=== PATIENT | female | born 1980 | race Caucasian/White ===

== ENCOUNTER → 2017-01-29 | Outpatient (REF) | payer OTHER ==
[2017-02-01 13:29] LABS: PERCENT SATURATION 22.4 % (13.2-37.4)
== END ==
LOC: M LAB REF 12:22
PROVIDERS: ATTEND Nurse Practitioner Family
DX: D50.9 Iron deficiency anemia, unspecified (principal)

== ENCOUNTER → 2018-01-28 | Outpatient (REF) | payer BC ==
[2018-01-28 17:02] LABS: VITAMIN B12 LEVEL 649 PG/ML (247-911)
== END ==
LOC: M LAB REF 16:31
DX: D50.9 Iron deficiency anemia, unspecified (principal); R53.83 Other fatigue
CPT/HCPCS: 82607

== ENCOUNTER → 2023-07-13 | Outpatient (REF) | payer OTHER | LOC: M LAB REF 12:43 | PROVIDERS: ATTEND Nurse Practitioner Family | DX: R82.90 Unspecified abnormal findings in urine (principal) ==

== ENCOUNTER → 2024-11-22 | Outpatient (CLI) | payer OTHER | LOC: M WUC 08:44 | PROVIDERS: ATTEND Nurse Practitioner Family | DX: R21 Rash and other nonspecific skin eruption (principal) ==

== ENCOUNTER → 2024-12-10 | Outpatient (REF) | payer OTHER | LOC: M LAB REF 19:02 | PROVIDERS: ATTEND Registered Nurse | DX: N39.0 Urinary tract infection, site not specified (principal) ==

== ENCOUNTER 2025-03-06 23:32 | Emergency (ER) | payer OTHER, SELFPAY ==
[~2025-03-06] VITALS: Ht 160 cm; Wt 63.0 kg
[2025-03-07] MEDS: ACETAMINOPHEN 325 MG TAB PO ONE (06:56)
[2025-03-07] MEDS: DERMABOND TOPICAL SKIN ADHESIVE TOP ONE (06:56)
[2025-03-07] MEDS: LIDOCAINE 4% CREAM 5GM (LMX4) TOP ONE (06:56)
[2025-03-07] MEDS: BOOSTRIX VACCINE (TETANUS/DIPHTH/ACEL. PERTUSSIS) 0.5ML SYR IM.IMMUN ONE (08:22)
[2025-03-07 08:24] VITALS: BP 124/75; TEMP 97.2; O2SAT 98
== END 2025-03-07 08:26 | disposition home or self-care (01) ==
LOC: M ED 23:32
DX: S01.112A Laceration without foreign body of left eyelid and periocular area, initial encounter (principal); S63.611A Unspecified sprain of left index finger, initial encounter; S33.8XXA Sprain of other parts of lumbar spine and pelvis, initial encounter; Y92.019 Unspecified place in single-family (private) house as the place of occurrence of the external cause; Y93.9 Activity, unspecified; Y99.9 Unspecified external cause status; Y04.2XXA Assault by strike against or bumped into by another person, initial encounter; Z23 Encounter for immunization